=== PATIENT | male | born 1965 | race African-American/Black ===

== ENCOUNTER 2019-12-08 09:02 | Emergency (ER) | payer OTHER ==
[~2019-12-08] VITALS: Ht 190.5 cm; Wt 102.1 kg
[2019-12-08] MEDS ORDERED: MULTI VITAMIN1 EACH PO (09:09)
[2019-12-08] MEDS ORDERED: VITAMIN C1000 MG PO (09:09)
[2019-12-08] MEDS ORDERED: OMEGA 3 1,0001 EACH PO (09:10)
[2019-12-08] MEDS ORDERED: CELEBREX200MG PO (11:36)
[2019-12-08] MEDS ORDERED: SKELAXIN800 MG PO (11:36)
== END 2019-12-08 12:36 | disposition home or self-care (01) ==
LOC: ER 09:02
DX: M76.21 Iliac crest spur, right hip (principal)

== ENCOUNTER 2023-06-20 14:29 | Outpatient (CLI) | payer OTHER ==
[~2023-06-20 14:29] MED LIST: CELEBREX200MG PO; MULTI VITAMIN1 EACH PO; OMEGA 3 1,0001 EACH PO; SKELAXIN800 MG PO; VITAMIN C1000 MG PO
== END 2023-06-20 15:04 | disposition home or self-care (01) ==
LOC: TOM 14:29
PROVIDERS: ATTEND Otolaryngology
DX: J32.4 Chronic pansinusitis (principal)